=== PATIENT | female | born 1985 | race Caucasian/White ===

== ENCOUNTER 2018-03-02 03:14 | Observation (INO) | payer OTHER ==
[2018-03-02] MEDS ORDERED: NS 1,000 ML IV ONE (03:20)
[2018-03-02] MEDS ORDERED: ONDANSETRON 4 MG/2 ML VIAL IVP ONE (03:31)
[2018-03-02] MEDS ORDERED: HYDROmorphONE/DILAUDID 2 MG/ML INJ IVP ONE (03:31)
--- NOTE | 2018-03-02 03:35 | EDPHY ---
H & P Stated Complaint: upper abd pain and dark stools Time Seen by Provider: 03/02/18 03:33 HPI/ROS: HPI CHIEF COMPLAINT: Abdominal pain, black stool. Took Pepto-Bismol. HISTORY OF PRESENT ILLNESS: Very pleasant 32-year-old female she is otherwise healthy, denies any significant medical history denies taking any daily medications, she presents emergency room with abdominal pain. Patient reports he has had epigastric sharp stabbing abdominal pain that radiates down to her lower abdomen. It started around 5:00 p.m. Last night is now 330 in the morning. She has had all night very little sleep. She has had nausea but no vomiting. She states she has had a lot of diarrhea mainly watery many loose stools. No fever. States her stools have been dark and black that she noticed around midnight. Denies any chest pain shortness of breath, denies fever, denies angie blood in her stool. She did take Pepto-Bismol at 12 o'clock. This did not help. She did have pizza for lunch and was late lunch, additionally she ate salmon for dinner. Past Medical History: Denies significant medical history Past Surgical History: Denies abdominal surgery Social History: Denies drugs alcohol tobacco. Family History: Noncontributory ROS REVIEW OF SYSTEMS: A comprehensive 10 point review of systems is otherwise negative aside from elements mentioned in the history of present illness. Exam Constitutional somewhat anxious however nontoxic, triage nursing summary reviewed, vital signs reviewed, awake/alert. Eyes normal conjunctivae and sclera, EOMI, PERRLA. HENT normal inspection, atraumatic, moist mucus membranes, no epistaxis, neck supple/ no meningismus, no raccoon eyes. Respiratory clear to auscultation bilaterally, normal breath sounds, no respiratory distress, no wheezing. Cardiovascular rate normal, regular rhythm, no murmur, no edema, distal pulses normal. Gastrointestinal soft, non-tender, no rebound, no guarding, normal bowel sounds, no distension, no pulsatile mass. Genitourinary no CVA tenderness. Musculoskeletal no midline vertebral tenderness, full range of motion, no calf swelling, no tenderness of extremities, no meningismus, good pulses, neurovascularly intact. Skin pink, warm, & dry, no rash, skin atraumatic. Neurologic awake, alert and oriented x 3, AAOx3, moves all 4 extremities equally, motor intact, sensory intact, CN II-XII intact, normal cerebellar, normal vision, normal speech. Psychiatric anxious Heme/Lymph/Immune no lymphadenopathy. Differential diagnosis includes but is not limited to and in no particular order : Bowel obstruction, appendicitis, gallbladder disease, diverticulitis, colitis , enteritis, perforated viscus, gastritis, GERD, esophagitis, urinary tract infection, pyelonephritis, kidney stones also including GI bleed, peptic ulcer disease, Medical Decision Making: Plan for this patient IV establishment IV fluid bolus , IV Dilaudid for pain control, IV Zofran nausea, basic blood work, stool study , check pathogen panel, send for blood in stool, urinalysis, , re- evaluate. Re-evaluation: 0424: Lab work reviewed. Additionally the patient did provide black tarry stool sample. It is Hemoccult positive. Due to this I have ordered the patient IV Protonix. She does have some epigastric pain concerning for peptic ulcer disease. Plan will be for hospital admission for black tarry stool with most likely peptic ulcer. NPO. Will admit to the hospitalist service. H&H have been reviewed. She is hemodynamically stable here. She has been typed and screen. IV Protonix as been ordered. 0437: Spoke with Dr. Baldwin, will plan on seeing evaluate the patient. NPO. Source: Patient - Personal History LMP (Females 10-55): 8-14 Days Ago Current Tetanus/Diphtheria Vaccine: Unsure Current Tetanus Diphtheria and Acellular Pertussis (TDAP): Unsure - Medical/Surgical History Hx Asthma: No Hx Chronic Respiratory Disease: No Hx Diabetes: No Hx Cardiac Disease: No Hx Renal Disease: No Hx Cirrhosis: No Hx Alcoholism: No Hx HIV/AIDS: No Hx Splenectomy or Spleen Trauma: No - Social History Smoking Status: Never smoked Constitutional: Initial Vital Signs Temperature (C) 36.7 C 03/02/18 03:15 Heart Rate 85 03/02/18 03:15 Respiratory Rate 16 03/02/18 03:15 Blood Pressure 157/103 H 03/02/18 03:15 O2 Sat (%) 99 03/02/18 03:15 O2 Delivery Mode Room Air Allergies/Adverse Reactions: No Known Allergies Allergy (Verified 03/02/18 09:00) Home Medications: Medication Instructions Recorded Herbals/Supplements -Info Only 1 ea PO DAILY 03/02/18 Pantoprazole Sodium [Protonix] 40 mg PO DAILY #30 tablet. 03/02/18 Jellico-28 1 each PO DAILY 03/02/18 Vitamin B Complex [Vitamin B 1 each PO DAILY 03/02/18 Complex (OTC)] Medical Decision Making - Data Points Laboratory Results: Laboratory Results 03/02/18 03:50 03/02/18 03:50 Medications Given: Discontinued Medications Hydromorphone HCl (Dilaudid) 0.5 mg IVP EDNOW ONE Stop: 03/02/18 03:32 Last Admin: 03/02/18 04:03 Dose: 0.5 mg Sodium Chloride (Ns) 1,000 mls @ 0 mls/hr IV EDNOW ONE; Wide Open PRN Reason: Protocol Stop: 03/02/18 03:21 Last Admin: 03/02/18 03:52 Dose: 1,000 mls Midazolam HCl (Versed) 2 mg IVP ONCALL ONE Stop: 03/02/18 09:39 Last Admin: 03/02/18 09:42 Dose: 2 mg Ondansetron HCl (Zofran) 4 mg IVP EDNOW ONE Stop: 03/02/18 03:32 Last Admin: 03/02/18 03:53 Dose: 4 mg Oxycodone HCl (Oxycodone Ir) 5 - 10 mg PO Q4HRS PRN PRN Reason: Pain, Moderate - Severe Stop: 03/12/18 07:43 Last Admin: 03/02/18 08:56 Dose: 10 mg Pantoprazole Sodium (Protonix) 40 mg IVP EDNOW ONE Stop: 03/02/18 03:45 Last Admin: 03/02/18 04:05 Dose: 40 mg Departure - Departure Disposition: [facility] Inpatient Acute Clinical Impression: GIB (gastrointestinal bleeding) Qualifiers: GI bleed type/associated pathology: melena Qualified Code(s): K92.1 - Melena Condition: Fair
[2018-03-02] MEDS ORDERED: PANTOPRAZOLE SODIUM 40 MG VIAL IVP ONE (03:44)
[2018-03-02 04:09] LABS: PLATELET COUNT 198 10^3/uL (150-400)
[2018-03-02 04:19] LABS: INR 0.95 (0.83-1.16); PROTIME(PATIENT) 12.9 SEC (12.0-15.0)
[2018-03-02] MEDS ORDERED: ONDANSETRON DISINTEGRATING 4 MG TAB PO PRN (04:30)
[2018-03-02] MEDS ORDERED: ACETAMINOPHEN 325 MG TAB PO PRN (04:30)
[2018-03-02] MEDS ORDERED: ONDANSETRON 4 MG/2 ML VIAL IVP PRN ×2 (04:30→09:40)
[2018-03-02] MEDS ORDERED: NS 1,000 ML IV SCH (04:30)
--- NOTE | 2018-03-02 05:56 | PDGENHP ---
History and Physical - Chief Complaint Melena - History of Present Illness 32 yo F w/ no significant PMHx presents with abdominal pain and dark, tarry stools. Her abdominal pain began last night. It is sharp, stabbing, and epi- gastric. Last night she also began to have loose stools. These have become dark and tarry. She denies dizziness or syncope. She does not use NSAID's or smoke cigarettes. She does drink wine about 5 nights weekly and has been under a lot of stress at work. She has had no prior similar episodes to this. In the ED stool sample c/w melena and FOBT+. CBC and VS WNL. Patient being admitted for management of suspected UGIB; GI consulted and requesting patient be NPO. Case discussed w/ ED physician Dr. Canela. Available records reviewed in EMR. History Information - Allergies/Home Medication List Allergies/Adverse Reactions: No Known Allergies Allergy (Unverified 03/02/18 03:19) Home Medications: Birthcontrol 03/02/18 [Last Taken Unknown] I have personally reviewed and updated: family history, medical history - Past Medical History no pertinent PMH - Surgical History Reports: no pertinent surgical hx - Family History Additional family history: Asked, denies - Social History Smoking Status: Never smoked Review of Systems Review of Systems: ROS: 10pt was reviewed & negative except for what was stated in HPI & below Physical Exam Physical Exam: Temp Pulse Resp BP Pulse Ox 36.8 C 69 18 125/77 H 96 03/02/18 05:33 03/02/18 05:33 03/02/18 05:33 03/02/18 05:33 03/02/18 05:33 Constitutional: no apparent distress, not in pain Eyes: PERRL, EOMI Ears, Nose, Mouth, Throat: moist mucous membranes, no oral mucosal ulcers Cardiovascular: regular rate and rhythym, no murmur, rub, or gallop Respiratory: no respiratory distress, clear to auscultation Gastrointestinal: normoactive bowel sounds, tenderness (Epigastric), No guarding , No rebound, No distension Skin: warm, normal color Musculoskeletal: full muscle strength, no muscle tenderness Neurologic: AAOx3, CN II-XII Intact Psychiatric: interacting appropriately, not anxious Lab Data & Imaging Review 03/02/18 03:50 03/02/18 03:50 WBC 4.97 10^3/uL (3.80-9.50) 03/02/18 03:50 RBC 4.57 10^6/uL (4.18-5.33) 03/02/18 03:50 Hgb 14.8 g/dL (12.6-16.3) 03/02/18 03:50 Hct 42.3 % (38.0-47.0) 03/02/18 03:50 MCV 92.6 fL (81.5-99.8) 03/02/18 03:50 MCH 32.4 pg (27.9-34.1) 03/02/18 03:50 MCHC 35.0 g/dL (32.4-36.7) 03/02/18 03:50 RDW 11.6 % (11.5-15.2) 03/02/18 03:50 Plt Count 198 10^3/uL (150-400) 03/02/18 03:50 MPV 9.3 fL (8.7-11.7) 03/02/18 03:50 Neut % (Auto) 50.1 % (39.3-74.2) 03/02/18 03:50 Lymph % (Auto) 36.4 % (15.0-45.0) 03/02/18 03:50 Villalba % (Auto) 9.5 % (4.5-13.0) 03/02/18 03:50 Eos % (Auto) 2.6 % (0.6-7.6) 03/02/18 03:50 Baso % (Auto) 1.0 % (0.3-1.7) 03/02/18 03:50 Nucleat RBC Rel Count 0.0 % (0.0-0.2) 03/02/18 03:50 Absolute Neuts (auto) 2.49 10^3/uL (1.70-6.50) 03/02/18 03:50 Absolute Lymphs (auto) 1.81 10^3/uL (1.00-3.00) 03/02/18 03:50 Absolute Monos (auto) 0.47 10^3/uL (0.30-0.80) 03/02/18 03:50 Absolute Eos (auto) 0.13 10^3/uL (0.03-0.40) 03/02/18 03:50 Absolute Basos (auto) 0.05 10^3/uL (0.02-0.10) 03/02/18 03:50 Absolute Nucleated RBC 0.00 10^3/uL (0-0.01) 03/02/18 03:50 Immature Gran % 0.4 % (0.0-1.1) 03/02/18 03:50 Immature Gran # 0.02 10^3/uL (0.00-0.10) 03/02/18 03:50 PT 12.9 SEC (12.0-15.0) 03/02/18 03:50 INR 0.95 (0.83-1.16) 03/02/18 03:50 APTT 23.0 SEC (23.0-38.0) 03/02/18 03:50 Sodium 139 mEq/L (135-145) 03/02/18 03:50 Potassium 4.4 mEq/L (3.3-5.0) 03/02/18 03:50 Chloride 109 mEq/L (97-110) 03/02/18 03:50 Carbon Dioxide 19 mEq/l (22-31) L 03/02/18 03:50 Anion Gap 11 mEq/L (8-16) 03/02/18 03:50 BUN 16 mg/dL (7-23) 03/02/18 03:50 Creatinine 0.8 mg/dL (0.6-1.0) 03/02/18 03:50 Estimated GFR > 60 03/02/18 03:50 Glucose 88 mg/dL (70-100) 03/02/18 03:50 Calcium 9.3 mg/dL (8.5-10.4) 03/02/18 03:50 Total Bilirubin 0.5 mg/dL (0.1-1.4) 03/02/18 03:50 Conjugated Bilirubin 0.1 mg/dL (0.0-0.5) 03/02/18 03:50 Unconjugated Bilirubin 0.4 mg/dL (0.0-1.1) 03/02/18 03:50 AST 33 IU/L (14-46) 03/02/18 03:50 ALT 29 IU/L (9-52) 03/02/18 03:50 Alkaline Phosphatase 71 IU/L (38-126) 03/02/18 03:50 Total Protein 7.5 g/dL (6.3-8.2) 03/02/18 03:50 Albumin 4.3 g/dL (3.5-5.0) 03/02/18 03:50 Lipase 114 IU/L (23-300) 03/02/18 03:50 Beta HCG, Qual NEGATIVE 03/02/18 03:50 Stool Occult Bld Scrn POSITIVE (NEGATIVE) H 03/02/18 03:35 Patient ABO/Rh B POSITIVE 03/02/18 04:10 Assessment & Plan Assessment: 32 yo F w/ no significant PMHx presents w/ melena. Plan: 1. Melena - Suspect UGIB; most likely gastritis vs. PUD. Risk factors include wine 5x weekly and increased stress at work. She has no prior history of this. - Admit for observation - Monitor CBC, next at 1000 - Check GI PCR - Maintain NPO - PPI IV BID - GI consulted, will see patient this morning for likely EGD Diet - NPO Code - Full PPx - Low risk, ambulate TID Dispo - Admit under observation status
[2018-03-02] MEDS ORDERED: oxyCODONE IR 5 MG TAB PO PRN (07:44)
[2018-03-02] MEDS ORDERED: MIDAZOLAM 2 MG/2 ML VIAL IVP ONE (09:38)
--- NOTE | 2018-03-02 09:38 | ASMTCMCOM ---
CM Note CM Note Notes: CM reviewed chart for D/C Planning. Pt is a 32y/o female, with no significant past medical hx, who presented to the ED with abdominal pain and dark, tarry stools. Her abdominal pain began last night. Pt reports increased stress at work and drinking wine 5x weekly. Pt lives independently and with her Charles, #[phone]. She works at [employer]. No CM needs are anticipated; CM will follow. D/C Plan: Anticipate independent. Date Signed: 03/02/2018 09:38 AM Electronically Signed By:Candi Barksdale
[2018-03-02] MEDS ORDERED: fentaNYL 100 MCG/2 ML INJ IVP PRN (09:40)
[2018-03-02] MEDS ORDERED: LR 500 ML IV PRN (09:40)
[2018-03-02] MEDS ORDERED: MEPERIDINE 25 MG/0.5 ML AMP IVP PRN (09:40)
[2018-03-02] MEDS ORDERED: NALOXONE HCL 0.4 MG/ML INJ IVP PRN (09:40)
[2018-03-02] MEDS ORDERED: PROMETHAZINE HCL 25 MG/ML INJ IVP PRN (09:40)
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
[2018-03-02] MEDS ORDERED: PROPOFOL 200 MG/20 ML VIAL ONE (09:43)
[2018-03-02] MEDS ORDERED: LIDOCAINE 2% 5 ML SDV ONE ×2 (09:53)
--- NOTE | 2018-03-02 09:59 | GIREPORT ---
[facility] - Endoscopy Department Patient Name: Cecille Forde Procedure Date: 03/02/2018 9:29 AM Patient Type: Inpatient Attending MD/ ER Physician: Delmer Adrian MD Procedure: Upper GI endoscopy Indications: Epigastric abdominal pain, Melena Providers: Delmer Adrian MD Medicines: Propofol per Anesthesia Complications: No immediate complications. Description of Procedure: After obtaining informed consent, the endoscope was passed under direct vision. Throughout the procedure, the patient's blood pressure, pulse, and oxygen saturations were monitored continuously. The Endoscope was intro duced through the mouth, and advanced to the second part of duodenum. The [facility] er GI endoscopy was accomplished without difficulty. The patient tolerated th e procedure well. Findings: The examined esophagus was normal. Diffuse moderate inflammation characterized by congestion (edema) and erosions was found in the gastric antrum. Biopsies were taken with a co ld forceps for histology. The examined duodenum was normal. Estimated Blood Loss: Estimated blood loss: none. Post Op Diagnosis: - Normal esophagus. - Acute gastritis. Biopsied. - Normal examined duodenum. Recommendation: - Patient has a contact number available for emergencies. The signs and symptoms of potential delayed complications were discussed with the pat ient. Return to normal activities tomorrow. Written discharge instructions we re provided to the patient. - Resume regular diet. - Continue present medications. - No aspirin, ibuprofen, naproxen, or other non-steroidal anti-inflamma tory drugs. - Await pathology results. - Use Protonix (pantoprazole) 40 mg PO daily for 6 weeks. - ok for discharge home - Thank you for allowing me to participate in the care of your patient. Attending Participation: I personally performed the entire procedure. Delmer Adrian MD Delmer Adrian MD 03/02/2018 9:59:31 AM This report has been signed electronicallyStruddy Adrian MD Number of Addenda: 0 Note Initiated On: 03/02/2018 9:29 AM [email or web address]
--- NOTE | 2018-03-02 10:00 | GCON ---
[f rep st] CONSULTATION REFERRING PHYSICIAN: Dr. Alonzo. CHIEF COMPLAINT: Epigastric pain and melena. HISTORY OF PRESENT ILLNESS: I was asked to see this very pleasant 32-year-old woman in consultation by Dr. Dawn for melenic stool and epigastric pain. Patient has no significant past medical history. She presented to the emergency department with complaints of epigastric pain and melenic stool. She had no significant dizziness or lightheadedness. She was hemodynamically stable in the ER with a normal hematocrit. She described a sudden onset of stabbing epigastric pain followed by melenic loose stool. She does describe them as being dark and tarry. She denies any NSAID use. She has no significant medical problems. No prior history of GI bleeding. She has no reflux disease, dysphagia, nausea or vomiting. She has had no change in bowel habits. She drinks wine about 5 nights weekly. Is under stress. She had a fecal occult blood positive stool test in the emergency department. She was admitted for observation and further management. PAST MEDICAL HISTORY: Negative. PAST SURGICAL HISTORY: Negative. MEDICATIONS: Prior to admission only included oral control. FAMILY HISTORY: Negative as it pertains to chief complaint. SOCIAL HISTORY: She is a nonsmoker. Drinks occasional alcohol. NKDA REVIEW OF SYSTEMS: Negative 10 systems other than mentioned in HPI. PHYSICAL EXAM: VITAL SIGNS: 131/77, heart rate 74, respiratory rate 16, temperature is 36.8 Celsius, 97% saturation on room air. GENERAL: A very pleasant woman in no acute distress. HEENT: Normocephalic, atraumatic. EOMI. NECK: Supple. No cervical adenopathy. No thyromegaly. Mucous membranes moist. LUNGS: Clear. CARDIAC: Exam normal. S1, S2 without murmur. ABDOMEN : Soft. Normal bowel sounds. Slight tenderness to palpation in the epigastrium. EXTREMITIES: Without clubbing, cyanosis, edema. NEURO: Nonfocal. SKIN: Warm, dry, intact. PSYCH: Alert and oriented x3 with normal affect. LABORATORY DATA: Hemoglobin 14.8, hematocrit 42.3, platelets of 198, PT of 12.9 with INR 0.95. Serum chemistries: Serum sodium 139, potassium 4.4, chloride of 109, BUN of 16, creatinine 0.8. Liver function tests normal. AST of 33, ALT of 29, alkaline phosphatase 71. IMPRESSION: This is a 32-year-old woman with a complaint of epigastric pain and reported melenic stool and heme-positive stool on fecal occult blood testing. Patient admitted to the hospital for observation. RECOMMENDATIONS: 1. Protonix 40 mg twice daily. 2. Proceed with diagnostic endoscopy. Will follow with you. /[id number]/MODL MTDD
--- NOTE | 2018-03-02 10:06 | POSTANESTH ---
Post Anesthetic Evaluation Cardiovascular Status: Normal, Stable, Similar to Pre-Op Cond Respiratory Status: Normal, Stable, Similar to Pre-op Cond. Level of Consciousness/Mental Status: Can Participate in Eval, Alert and Oriented Pain Control: Adequate, Prn Tx Ordered Nausea/Vomiting Control: Adequate, Prn Tx Ordered Complications Possibly Related to Anesthesia: None Noted
[2018-03-02 11:20] VITALS: BP 121/76
--- NOTE | 2018-03-02 11:21 | PDDCSUM ---
Discharge Summary Discharge Summary: 32 yo F w/ no significant PMHx presents w/ melena. VSS and Hgb are stable. She had an Upper endoscopy c/w Gastritis. Biopsies were taken. Per GI, recommendations are as follows: -Protonix daily x 6 weeks -f/u biopsies per GI -Regular diet -No aspirin, ibuprofen, Naproxen -No ETOH She will f/u with her PCP in one week. Return precautions have been provided. GI has recommended discharge Exam: NAD AAOX3 RRR CTA B S/NT/ND Meds: see med rec F/U: per above Discharge Diagnosis: #Melena #Gastritis #Abdominal Pain total time spent on discharge is 35 minutes
--- NOTE | 2018-03-02 11:28 | ASDISCHSUM ---
Discharge Information Plan Status:Home with No Needs Medically Cleared to Leave: Discharge Date: CM D/C Disposition:Home, Routine, Self-Care ADT D/C Disposition:Home, Routine, Self-Care Projected Discharge Date: Transportation at D/C:Family Discharge Delay Reason: Follow-Up Date: Discharge Slot: Final Diagnosis: Placement Information Patient Contact Information Contact Name:CHARLSEELSAFLOCHARAN Relationship: Address:[facility] [address] Work Phone: City:[place] [facility] Phone: State/Zip Code:[place] [address] Email: Financial Information Financial Class:HMO and PPO Plans Primary Plan Desc:[employer] Primary Plan Number:[id number] Secondary Plan Desc: Secondary Plan Number: Assessment Information LACE LACE Length of stay for Answers: Less than 1 day current admission Acuity / Level of Answers: No Care: Did the patient have an inpatient admission? # of Emergency department Answers: 1-2 visits in the last 6 months Score: 1 Date Signed: 03/02/2018 11:27 AM Electronically Signed By:Candi Barksdale [facility] CM Progress Note CM Note CM Note Notes: CM reviewed chart for D/C Planning. Pt is a 32y/o female, with no significant past medical hx, who presented to the ED with abdominal pain and dark, tarry stools. Her abdominal pain began last night. Pt reports increased stress at work and drinking wine 5x weekly. Pt lives independently and with her Charles, #[phone]. She works at [employer]. No CM needs are anticipated; CM will follow. D/C Plan: Anticipate independent. Date Signed: 03/02/2018 09:38 AM Electronically Signed By:Candi Barksdale Case Management Discharge Plan Note Case Management Discharge Discharge Order Complete? Answers: Yes Followup Appointment 03/11/2018 08:45 AM Patient to Obtain Answers: Independently Medications Transportation Arranged Answers: Family/Friends Agency/Facility Transfer Answers: No Report Printed & Faxed to Receiving Agency Family Notified Answers: Yes Discharge Comments Notes: Pt will follow up with [facility]. She has an appt for Mar 11 at 8:45 AM There are no other CM needs. Date Signed: 03/02/2018 11:26 AM Electronically Signed By:Candi Barksdale Intervention Information
[2018-03-02] MEDS ORDERED: PANTOPRAZOLE SODIUM 40 MG VIAL IVP SCH (21:00)
== END 2018-03-02 12:06 | disposition home or self-care (01) ==
LOC: F1N 05:38
PROVIDERS: ADMIT Student in an Organized Health Care Education/Training Program; ATTEND Student in an Organized Health Care Education/Training Program
PROC: 0DB68ZX Excision of Stomach, Via Natural or Artificial Opening Endoscopic, Diagnostic (ICD-10-PCS; principal; 2018-03-02 09:45)
DX: K31.9 Disease of stomach and duodenum, unspecified (principal); E86.9 Volume depletion, unspecified
CPT/HCPCS: 43239; 96361; 96374; 96375; 99285; G0378; J1170; J2250; J2405; J2704